=== PATIENT | male | born 1970 | race Caucasian/White ===

== ENCOUNTER 2018-02-20 10:44 | Day surgery (SDC) | payer OTHER ==
[2018-02-20] VITALS (11 sets, daily range): BP systolic 102–131; BP diastolic 49–73; PULSE 68–85; TEMP 97.8–98.7
[~2018-02-20] VITALS: Ht 175.3 cm; Wt 133.1 kg
[2018-02-20] MEDS ORDERED: IMDUR 60MG60 MG/TAB PO (11:25)
[2018-02-20] MEDS ORDERED: CYMBALTA 60MG60 MG PO (11:25)
[2018-02-20] MEDS ORDERED: ZEBETA 5MG5 MG PO (11:25)
[2018-02-20] MEDS ORDERED: LIPITOR20 MG PO (11:26)
[2018-02-20] MEDS ORDERED: NORCO 325 MG-51 TAB PO (11:26)
[2018-02-20] MEDS ORDERED: NORVASC 5MG5 MG/TAB PO (11:26)
[2018-02-20] MEDS ORDERED: SINGULAIR 110 MG/TAB PO (11:26)
[2018-02-20] MEDS ORDERED: FLOMAX 0.40.4 MG/CAP PO (11:29)
[2018-02-20] MEDS ORDERED: COZAAR 50MG50 MG/TAB PO (11:29)
[2018-02-20] MEDS ORDERED: SPIRIVA RE2.5 MCG/Ac IH (11:29)
[2018-02-20 11:58] LABS: BASO # 0.1 (0.0-0.2); BASO % 0.9 % (0.0-2.0); EOS # 0.2 (0.0-0.7); EOS % 2.7 % (0-4.0); GRAN # 4.1 (1.4-6.5); GRAN % 65.1 % (42.2-75.2); HEMATOCRIT 41.5 % (42.0-52.0); HEMOGLOBIN 14.8 g/dl (13.5-18.0); LYMPH # 1.4 (1.2-3.4); LYMPH % 22.1 % (20.0-51.0); MEAN CELL VOLUME 86 fl (80.0-100.0); MEAN CORPUSCULAR HEMOGLOBIN 31 pg (27.0-31.0); MEAN CORPUSCULAR HGB CONC 36 g/dl (33.0-37.0); MEAN PLATELET VOLUME 9.1 fl (7.4-10.4); MONO # 0.6 (0.1-0.6); MONO % 8.9 % (1.7-9.3); PLATELET COUNT 259 K/mm3 (130-400); RED BLOOD COUNT 4.82 M/mm3 (4.20-5.60); REDCELL DISTRIBUTION WIDTH-CV 11.9 % (11.5-14.5)
[2018-02-21 04:21] VITALS: BP 109/71; PULSE 66; TEMP 98.1
[2018-02-21 08:36] VITALS: BP 133/80; PULSE 80; TEMP 98
[2018-02-21 12:44] VITALS: BP 106/51; PULSE 82; TEMP 98.1
[2018-02-21 16:08] VITALS: BP 111/55; PULSE 78; TEMP 98
== END 2018-02-21 18:22 | disposition home or self-care (01) ==
LOC: SDCO 10:44 → SURG 16:18 → SDCO 02-21 18:22
PROVIDERS: Urology
DX: N40.1 Benign prostatic hyperplasia with lower urinary tract symptoms (principal); R39.12 Poor urinary stream; J44.9 Chronic obstructive pulmonary disease, unspecified; I25.10 Atherosclerotic heart disease of native coronary artery without angina pectoris; I10 Essential (primary) hypertension; F32.9 Major depressive disorder, single episode, unspecified; Z79.899 Other long term (current) drug therapy; Z79.82 Long term (current) use of aspirin; E78.5 Hyperlipidemia, unspecified; G47.33 Obstructive sleep apnea (adult) (pediatric); F17.220 Nicotine dependence, chewing tobacco, uncomplicated; F17.290 Nicotine dependence, other tobacco product, uncomplicated; E66.9 Obesity, unspecified; Z68.41 Body mass index [BMI] 40.0-44.9, adult
CPT/HCPCS: OP; J0690; J1100; J1170; J2405; J2704; J3010; J3480; J7120